=== PATIENT | male | born 1970 | race Two or more races ===

== ENCOUNTER 2024-12-07 17:56 | Inpatient (IN) | payer OTHER ==
[~2024-12-07] VITALS: Ht 175.3 cm; Wt 83.5 kg
[2024-12-07 18:37] LABS: BASOPHILS # (AUTO) 0.1 X10'3 (0-0.2); BASOPHILS % (AUTO) 0.7 % (0-1); EOSINOPHILS # (AUTO) 0.1 X10'3 (0-0.9); HEMATOCRIT 40.6 % (42.0-52.0); HEMOGLOBIN 13.3 g/dl (14.0-17.9); LYMPHOCYTES # (AUTO) 0.9 X10'3 (1.1-4.8); LYMPHOCYTES % (AUTO) 8.6 % (21-51); MEAN CORPUSCULAR HEMOGLOBIN 25.6 PG (27.0-31.0); MEAN CORPUSCULAR HGB CONC 32.8 g/dL (33.0-36.5); MEAN PLATELET VOLUME 9.6 FL (7.4-10.4); MONOCYTES # (AUTO) 0.9 X10'3 (0-0.9); MONOCYTES % (AUTO) 8.4 % (2-12); NEUTROPHILS # (AUTO) 8.9 X10'3 (1.8-7.7); NEUTROPHILS % (AUTO) 81.3 % (42-75); PLATELET COUNT 349 X10'3 (140-440); RED CELL DISTRIBUTION WIDTH 25.2 % (11.5-14.5); WHITE BLOOD COUNT 10.9 X10'3 (4.5-11.0)
[2024-12-07 19:05] LABS: PLATELET ESTIMATE NORMAL
[2024-12-07 19:06] LABS: ALANINE AMINOTRANSFERASE 48 U/L (12-78); ALBUMIN/GLOBULIN RATIO 0.6 (1.1-1.5); ALKALINE PHOSPHATASE 129 IU/L (46-116); ANION GAP 9 (8-16); ANISOCYTOSIS 2+; ASPARTATE AMINO TRANSFERASE 22 U/L (10-37); BILIRUBIN,TOTAL 0.3 MG/DL (0.1-1.0); BLOOD UREA NITROGEN 7 MG/DL (7-18); BUN/CREATININE RATIO 8.5 (10.0-20.0); CALCIUM 9.2 MG/DL (8.5-10.1); CHLORIDE 104 MMOL/L (99-107); CREATININE 0.82 MG/DL (0.60-1.10); ELLIPTOCYTES 2+; GLUCOSE 127 MG/DL (70-104); LIPASE 27 U/L (16-77); MICROCYTOSIS 1+; POIKILOCYTOSIS 2+; POTASSIUM 3.3 MMOL/L (3.5-5.1); SODIUM 140 MMOL/L (135-145); TOTAL PROTEIN 8.3 G/DL (6.4-8.2); eCRCL 104 ML/MIN; eGFR > 90 ML/MIN
[2024-12-07] MEDS ORDERED: iohexol 300mg/ml 100ml inj. ONE (19:44)
[2024-12-07 20:35] LABS: BILIRUBIN,URINE NEGATIVE (Neg); CLARITY,URINE CLEAR (Clear); COLOR,URINE YELLOW (Yellow); GLUCOSE, URINE NEGATIVE (Neg); KETONES,URINE NEGATIVE (Neg); LEUKOCYTE ESTERASE ,URINE NEGATIVE (Neg); NITRITES, URINE NEGATIVE (Neg); OCCULT BLOOD,URINE NEGATIVE (Neg); PH,URINE 5.5 (4.8-8.0); PROTEIN,URINE NEGATIVE (Neg); UROBILINOGEN,URINE 0.2 E.U/dL (0.2-1.0)
[2024-12-07 21:02] LABS: UA COLLECTION TYPE NON-SPECIFIED
[2024-12-07 21:13] LABS: APTT 27 SECONDS (22-32); PROTHROMBIN TIME 10.9 SECONDS (9.0-12.0)
[2024-12-07] MEDS: piperacillin/tazo 4.5gm/100ml 100 ML IV ONE (21:21)
[2024-12-07] MEDS: normal saline 1000ml 1,000 ML IV SCH (21:25)
[2024-12-07] MEDS: morphine 2 MG/ML inj. syringe IV ONE (21:25)
[2024-12-07] MEDS ORDERED: LOSA25TA41 PO (22:42)
[2024-12-07] MEDS ORDERED: ATOR-2 PO (22:42)
[2024-12-07] MEDS ORDERED: ASPI-1265 PO (22:42)
[2024-12-07] MEDS ORDERED: CARV3.1244 PO (22:42)
[2024-12-08] MEDS: morphine 4 MG/ML inj SYRINge IV ONE ×2 (02:32→05:31)
[2024-12-08] MEDS: piperacillin/tazo 3.375gm/50ml 50 ML IV SCH (07:59)
[2024-12-08] MEDS: HYDROmorphone inj. 0.5 MG/0.5 ML DISP.SYRIN IV PRN (08:47)
[2024-12-08] MEDS ORDERED: bisacodyl 10mg suppository rectal RC PRN (13:30)
[2024-12-08] MEDS ORDERED: magnesium hydroxide 30ml (MOM) UD suspension PO PRN (13:30)
[2024-12-08] MEDS ORDERED: acetaminophen 325mg tablet PO PRN (13:30)
[2024-12-08] MEDS ORDERED: ondansetron 4mg rapidly disintigrating tab PO PRN (13:30)
[2024-12-08] MEDS ORDERED: morphine 2 MG/ML inj. syringe IV PRN ×2 (13:30)
[2024-12-08] MEDS ORDERED: mag hydrox/Alum hydrox/simeth 30ml oral suspension PO PRN (13:30)
[2024-12-08] MEDS ORDERED: diphenhydrAMINE 50 mg/ml inj IV PRN (13:30)
[2024-12-08] MEDS ORDERED: diphenhydrAMINE 25mg capsule PO PRN (13:30)
[2024-12-08] MEDS ORDERED: acetaminophen 650mg rectal suppository RC PRN (13:30)
[2024-12-08] MEDS ORDERED: ondansetron/PF 4mg/2ml inj IV PRN (13:30)
[2024-12-08 14:30] LABS: BILIRUBIN,URINE NEGATIVE (Neg); CLARITY,URINE CLEAR (Clear); COLOR,URINE YELLOW (Yellow); GLUCOSE, URINE NEGATIVE (Neg); KETONES,URINE NEGATIVE (Neg); LEUKOCYTE ESTERASE ,URINE NEGATIVE (Neg); NITRITES, URINE NEGATIVE (Neg); OCCULT BLOOD,URINE NEGATIVE (Neg); PH,URINE 6.5 (4.8-8.0); PROTEIN,URINE NEGATIVE (Neg); UROBILINOGEN,URINE 0.2 E.U/dL (0.2-1.0)
[2024-12-08 14:37] LABS: APTT 27 SECONDS (22-32); INR 1.1 INR; PROTHROMBIN TIME 11.4 SECONDS (9.0-12.0)
[2024-12-08 14:39] LABS: UA COLLECTION TYPE NON-SPECIFIED
[2024-12-08] MEDS ORDERED: magnesium sulf-water 4G/100mL 100 ML IV PRN (14:40)
[2024-12-08] MEDS ORDERED: magnesium sulf-water 2g/50mL 50 ML IV PRN (14:40)
[2024-12-08] MEDS ORDERED: potassium Cl 20 mEq SR tablet PO PRN (14:40)
[2024-12-08] MEDS ORDERED: magnesium Cl slow-release 64mg tablet PO PRN (14:40)
[2024-12-08] MEDS ORDERED: potassium Cl 40MEQ/1/2NS 520ml 520 ML IV PRN (14:40)
[2024-12-08 14:51] LABS: MAGNESIUM 1.8 MG/DL (1.5-2.4); PHOSPHORUS 3.1 MG/DL (2.3-4.5)
[2024-12-08 15:07] LABS: HEMOGLOBIN A1C 5.7 % (4.5-6.2)
[2024-12-08] MEDS: potassium Cl 20 mEq SR tablet PO PRN (15:24)
[2024-12-08] MEDS: normal saline 1000ml 1,000 ML IV SCH (15:26)
[2024-12-08] MEDS: HYDROcodone/acetaminophen 10/325mg tab PO PRN (15:33)
[2024-12-08 16:00] VITALS: RESP 16
[2024-12-08] MEDS: piperacillin/tazo 4.5gm/100ml 100 ML IV SCH (16:33)
[2024-12-08 18:00] VITALS: BP 135/78; PULSE 81; RESP 16; TEMP 98.8; O2SAT 95
[2024-12-08] MEDS: docusate sod 100mg capsule PO SCH (19:48)
[2024-12-08] MEDS: heparin, porcine 5000 units/ml vial SQ SCH (19:50)
[2024-12-08] MEDS: K and/or MAG REPLACEMENT MC SCH (19:55)
[2024-12-08 20:00] VITALS: RESP 18; O2SAT 96
[2024-12-08 22:00] VITALS: BP 133/83; PULSE 77; RESP 20; TEMP 98.2; O2SAT 98
[2024-12-09 06:11] LABS: BASOPHILS % (AUTO) 0.6 % (0-1); EOSINOPHILS # (AUTO) 0.1 X10'3 (0-0.9); EOSINOPHILS % (AUTO) 1.8 % (0-6); HEMATOCRIT 36.6 % (42.0-52.0); HEMOGLOBIN 11.9 g/dl (14.0-17.9); LYMPHOCYTES % (AUTO) 16.7 % (21-51); MEAN CORPUSCULAR HEMOGLOBIN 25.2 PG (27.0-31.0); MEAN CORPUSCULAR HGB CONC 32.6 g/dL (33.0-36.5); MEAN CORPUSCULAR VOLUME 77.4 FL (78-98); MEAN PLATELET VOLUME 9.3 FL (7.4-10.4); MONOCYTES # (AUTO) 0.6 X10'3 (0-0.9); MONOCYTES % (AUTO) 9.3 % (2-12); NEUTROPHILS # (AUTO) 4.3 X10'3 (1.8-7.7); NEUTROPHILS % (AUTO) 71.6 % (42-75); PLATELET COUNT 275 X10'3 (140-440); RED BLOOD COUNT 4.72 X10'6 (4.70-6.10); RED CELL DISTRIBUTION WIDTH 24.3 % (11.5-14.5); WHITE BLOOD COUNT 6.1 X10'3 (4.5-11.0)
[2024-12-09 06:29] LABS: ALANINE AMINOTRANSFERASE 27 U/L (12-78); ALBUMIN 2.3 G/DL (3.4-5.0); ALBUMIN/GLOBULIN RATIO 0.5 (1.1-1.5); ALKALINE PHOSPHATASE 100 IU/L (46-116); ANION GAP 8 (8-16); ASPARTATE AMINO TRANSFERASE 19 U/L (10-37); BILIRUBIN,TOTAL 0.5 MG/DL (0.1-1.0); BLOOD UREA NITROGEN 3 MG/DL (7-18); BUN/CREATININE RATIO 3.8 (10.0-20.0); CALCIUM 8.2 MG/DL (8.5-10.1); CHLORIDE 102 MMOL/L (99-107); CHOL/HDL RATIO 3.9 (0.00-4.99); CHOLESTEROL 149 MG/DL (0-200); GLUCOSE 96 MG/DL (70-104); HDL CHOLESTEROL 38 MG/DL (35-60); MAGNESIUM 1.6 MG/DL (1.5-2.4); POTASSIUM 3.2 MMOL/L (3.5-5.1); SODIUM 136 MMOL/L (135-145); TOTAL CARBON DIOXIDE 25.7 MMOL/L (24-32); TOTAL PROTEIN 7.1 G/DL (6.4-8.2); TRIGLYCERIDES 341 MG/DL (20-135); eCRCL 107 ML/MIN; eGFR > 90 ML/MIN
[2024-12-09 06:37] VITALS: BP 150/93; PULSE 79; RESP 18; TEMP 97.7; O2SAT 98
[2024-12-09 07:10] LABS: LDL CHOLESTEROL 86 MG/DL (50-100)
[2024-12-09 07:51] LABS: ANISOCYTOSIS 3+; PLATELET ESTIMATE NORMAL
[2024-12-09 07:52] LABS: ELLIPTOCYTES 1+; MICROCYTOSIS 1+; POIKILOCYTOSIS 1+
[2024-12-09 08:00] VITALS: RESP 16
[2024-12-09] MEDS: pantoprazole 40mg Tablet.DR PO SCH (09:20)
[2024-12-09 10:00] VITALS: BP 135/88; PULSE 72; RESP 20; TEMP 97.7; O2SAT 93
[2024-12-09 19:00] VITALS: BP 141/86; PULSE 77; RESP 20; TEMP 97.8; O2SAT 97
[2024-12-09] MEDS: carVEDilol 3.125mg tablet PO SCH (21:21)
[2024-12-09 22:00] VITALS: BP 130/84; PULSE 80; RESP 18; TEMP 97.1; O2SAT 96
[2024-12-10 05:59] LABS: BASOPHILS % (AUTO) 0.5 % (0-1); EOSINOPHILS # (AUTO) 0.2 X10'3 (0-0.9); EOSINOPHILS % (AUTO) 2.9 % (0-6); HEMATOCRIT 36.4 % (42.0-52.0); HEMOGLOBIN 11.8 g/dl (14.0-17.9); LYMPHOCYTES # (AUTO) 1.2 X10'3 (1.1-4.8); LYMPHOCYTES % (AUTO) 22.3 % (21-51); MEAN CORPUSCULAR HEMOGLOBIN 25.2 PG (27.0-31.0); MEAN CORPUSCULAR HGB CONC 32.4 g/dL (33.0-36.5); MEAN CORPUSCULAR VOLUME 77.6 FL (78-98); MEAN PLATELET VOLUME 9.3 FL (7.4-10.4); MONOCYTES # (AUTO) 0.6 X10'3 (0-0.9); MONOCYTES % (AUTO) 10.6 % (2-12); NEUTROPHILS # (AUTO) 3.5 X10'3 (1.8-7.7); NEUTROPHILS % (AUTO) 63.7 % (42-75); PLATELET COUNT 304 X10'3 (140-440); RED BLOOD COUNT 4.69 X10'6 (4.70-6.10); RED CELL DISTRIBUTION WIDTH 24.1 % (11.5-14.5); WHITE BLOOD COUNT 5.5 X10'3 (4.5-11.0)
[2024-12-10 06:00] VITALS: BP 127/76; PULSE 70; RESP 16; TEMP 97.3; O2SAT 97
[2024-12-10 06:21] LABS: ALANINE AMINOTRANSFERASE 33 U/L (12-78); ALBUMIN 2.2 G/DL (3.4-5.0); ALBUMIN/GLOBULIN RATIO 0.4 (1.1-1.5); ALKALINE PHOSPHATASE 99 IU/L (46-116); ANION GAP 10 (8-16); ASPARTATE AMINO TRANSFERASE 28 U/L (10-37); BILIRUBIN,TOTAL 0.3 MG/DL (0.1-1.0); BLOOD UREA NITROGEN 3 MG/DL (7-18); BUN/CREATININE RATIO 4.6 (10.0-20.0); CALCIUM 8.6 MG/DL (8.5-10.1); CHLORIDE 105 MMOL/L (99-107); CREATININE 0.65 MG/DL (0.60-1.10); GLUCOSE 112 MG/DL (70-104); MAGNESIUM 2.3 MG/DL (1.5-2.4); POTASSIUM 3.6 MMOL/L (3.5-5.1); SODIUM 138 MMOL/L (135-145); TOTAL CARBON DIOXIDE 23.1 MMOL/L (24-32); TOTAL PROTEIN 7.4 G/DL (6.4-8.2); eCRCL 131 ML/MIN; eGFR > 90 ML/MIN
[2024-12-10] MEDS: atorvastatin 20mg tablet PO SCH (08:42)
[2024-12-10] MEDS: losartan 25mg tablet PO SCH (08:42)
[2024-12-10] MEDS: aspirin 81mg tab.chew PO SCH (08:42)
[2024-12-10 09:06] VITALS: RESP 16
[2024-12-10 10:00] VITALS: BP 125/82; PULSE 74; RESP 20; TEMP 97.9; O2SAT 94
[2024-12-10 18:00] VITALS: BP 129/82; PULSE 68; RESP 15; TEMP 97.7; O2SAT 98
[2024-12-10 20:05] VITALS: RESP 16; O2SAT 98
[2024-12-10] MEDS ORDERED: atorvastatin 20mg tablet PO SCH (21:25)
[2024-12-10 22:00] VITALS: BP 141/94; PULSE 74; RESP 19; TEMP 98; O2SAT 94
[2024-12-11 05:25] LABS: BASOPHILS % (AUTO) 0.8 % (0-1); EOSINOPHILS # (AUTO) 0.2 X10'3 (0-0.9); EOSINOPHILS % (AUTO) 3.4 % (0-6); HEMATOCRIT 37.2 % (42.0-52.0); LYMPHOCYTES # (AUTO) 1.4 X10'3 (1.1-4.8); LYMPHOCYTES % (AUTO) 23.9 % (21-51); MEAN CORPUSCULAR HEMOGLOBIN 25.2 PG (27.0-31.0); MEAN CORPUSCULAR HGB CONC 32.3 g/dL (33.0-36.5); MEAN PLATELET VOLUME 9.6 FL (7.4-10.4); MONOCYTES # (AUTO) 0.4 X10'3 (0-0.9); MONOCYTES % (AUTO) 7.8 % (2-12); NEUTROPHILS # (AUTO) 3.7 X10'3 (1.8-7.7); NEUTROPHILS % (AUTO) 64.1 % (42-75); PLATELET COUNT 376 X10'3 (140-440); RED BLOOD COUNT 4.77 X10'6 (4.70-6.10); RED CELL DISTRIBUTION WIDTH 24.8 % (11.5-14.5); WHITE BLOOD COUNT 5.7 X10'3 (4.5-11.0)
[2024-12-11 05:44] LABS: ALANINE AMINOTRANSFERASE 38 U/L (12-78); ALBUMIN 2.4 G/DL (3.4-5.0); ALBUMIN/GLOBULIN RATIO 0.5 (1.1-1.5); ALKALINE PHOSPHATASE 92 IU/L (46-116); ANION GAP 11 (8-16); ASPARTATE AMINO TRANSFERASE 25 U/L (10-37); BILIRUBIN,TOTAL 0.3 MG/DL (0.1-1.0); BLOOD UREA NITROGEN 7 MG/DL (7-18); BUN/CREATININE RATIO 9.7 (10.0-20.0); CALCIUM 8.9 MG/DL (8.5-10.1); CHLORIDE 107 MMOL/L (99-107); CREATININE 0.72 MG/DL (0.60-1.10); GLUCOSE 111 MG/DL (70-104); MAGNESIUM 2.1 MG/DL (1.5-2.4); POTASSIUM 3.8 MMOL/L (3.5-5.1); SODIUM 142 MMOL/L (135-145); TOTAL CARBON DIOXIDE 23.9 MMOL/L (24-32); TOTAL PROTEIN 7.7 G/DL (6.4-8.2); eCRCL 119 ML/MIN; eGFR > 90 ML/MIN
[2024-12-11 06:45] VITALS: BP 150/96; PULSE 66; RESP 18; TEMP 98.6; O2SAT 99
[2024-12-11 07:45] VITALS: RESP 18; O2SAT 99
[2024-12-11] MEDS: atorvastatin 20mg tablet PO SCH (07:46)
[2024-12-11 10:00] VITALS: BP 148/87; PULSE 72; RESP 17; TEMP 98; O2SAT 96
[2024-12-11 18:00] VITALS: BP 136/83; PULSE 69; RESP 16; TEMP 97.1; O2SAT 96
[2024-12-11] MEDS ORDERED: atorvastatin 20mg tablet PO SCH (21:00)
[2024-12-11] MEDS: acetaminophen 325mg tablet PO PRN (21:51)
[2024-12-11 22:00] VITALS: BP 152/82; PULSE 63; RESP 16; TEMP 98.1; O2SAT 99
[2024-12-12 05:38] LABS: BASOPHILS % (AUTO) 0.6 % (0-1); EOSINOPHILS # (AUTO) 0.2 X10'3 (0-0.9); EOSINOPHILS % (AUTO) 3.5 % (0-6); HEMATOCRIT 37.9 % (42.0-52.0); HEMOGLOBIN 12.5 g/dl (14.0-17.9); LYMPHOCYTES # (AUTO) 1.6 X10'3 (1.1-4.8); LYMPHOCYTES % (AUTO) 29.1 % (21-51); MEAN CORPUSCULAR HEMOGLOBIN 25.3 PG (27.0-31.0); MEAN CORPUSCULAR HGB CONC 32.8 g/dL (33.0-36.5); MEAN PLATELET VOLUME 9.6 FL (7.4-10.4); MONOCYTES # (AUTO) 0.4 X10'3 (0-0.9); NEUTROPHILS # (AUTO) 3.3 X10'3 (1.8-7.7); NEUTROPHILS % (AUTO) 59.8 % (42-75); PLATELET COUNT 401 X10'3 (140-440); RED BLOOD COUNT 4.92 X10'6 (4.70-6.10); RED CELL DISTRIBUTION WIDTH 24.4 % (11.5-14.5); WHITE BLOOD COUNT 5.6 X10'3 (4.5-11.0)
[2024-12-12 05:56] LABS: ALANINE AMINOTRANSFERASE 49 U/L (12-78); ALBUMIN 2.6 G/DL (3.4-5.0); ALBUMIN/GLOBULIN RATIO 0.5 (1.1-1.5); ALKALINE PHOSPHATASE 90 IU/L (46-116); ANION GAP 9 (8-16); ASPARTATE AMINO TRANSFERASE 31 U/L (10-37); BILIRUBIN,TOTAL 0.2 MG/DL (0.1-1.0); BLOOD UREA NITROGEN 6 MG/DL (7-18); BUN/CREATININE RATIO 8.7 (10.0-20.0); CALCIUM 9.2 MG/DL (8.5-10.1); CHLORIDE 107 MMOL/L (99-107); CREATININE 0.69 MG/DL (0.60-1.10); GLUCOSE 105 MG/DL (70-104); POTASSIUM 3.5 MMOL/L (3.5-5.1); SODIUM 142 MMOL/L (135-145); TOTAL PROTEIN 7.4 G/DL (6.4-8.2); eCRCL 124 ML/MIN; eGFR > 90 ML/MIN
[2024-12-12 06:00] VITALS: BP 148/90; PULSE 52; RESP 14; TEMP 96.8; O2SAT 98
[2024-12-12 11:00] VITALS: BP 122/72; PULSE 65; RESP 15; TEMP 97.5; O2SAT 96
[2024-12-12 18:30] VITALS: BP 138/84; PULSE 70; RESP 15; TEMP 98.7; O2SAT 93
[2024-12-12 19:00] VITALS: RESP 15; O2SAT 93
[2024-12-12 22:00] VITALS: BP 146/82; PULSE 64; RESP 18; TEMP 97.9; O2SAT 97
[2024-12-13 05:26] LABS: BASOPHILS # (AUTO) 0.1 X10'3 (0-0.2); BASOPHILS % (AUTO) 0.6 % (0-1); EOSINOPHILS # (AUTO) 0.2 X10'3 (0-0.9); EOSINOPHILS % (AUTO) 2.8 % (0-6); HEMATOCRIT 37.3 % (42.0-52.0); HEMOGLOBIN 12.3 g/dl (14.0-17.9); LYMPHOCYTES # (AUTO) 1.9 X10'3 (1.1-4.8); LYMPHOCYTES % (AUTO) 23.9 % (21-51); MEAN CORPUSCULAR HEMOGLOBIN 25.6 PG (27.0-31.0); MEAN CORPUSCULAR VOLUME 77.5 FL (78-98); MEAN PLATELET VOLUME 9.4 FL (7.4-10.4); MONOCYTES # (AUTO) 0.5 X10'3 (0-0.9); MONOCYTES % (AUTO) 6.3 % (2-12); NEUTROPHILS # (AUTO) 5.4 X10'3 (1.8-7.7); NEUTROPHILS % (AUTO) 66.4 % (42-75); PLATELET COUNT 426 X10'3 (140-440); RED BLOOD COUNT 4.81 X10'6 (4.70-6.10); RED CELL DISTRIBUTION WIDTH 24.6 % (11.5-14.5); WHITE BLOOD COUNT 8.1 X10'3 (4.5-11.0)
[2024-12-13 05:58] LABS: ALANINE AMINOTRANSFERASE 67 U/L (12-78); ALBUMIN 2.8 G/DL (3.4-5.0); ALBUMIN/GLOBULIN RATIO 0.5 (1.1-1.5); ALKALINE PHOSPHATASE 90 IU/L (46-116); ANION GAP 10 (8-16); ASPARTATE AMINO TRANSFERASE 47 U/L (10-37); BILIRUBIN,TOTAL 0.2 MG/DL (0.1-1.0); BLOOD UREA NITROGEN 7 MG/DL (7-18); BUN/CREATININE RATIO 7.8 (10.0-20.0); CALCIUM 8.9 MG/DL (8.5-10.1); CHLORIDE 105 MMOL/L (99-107); GLUCOSE 101 MG/DL (70-104); POTASSIUM 3.4 MMOL/L (3.5-5.1); SODIUM 138 MMOL/L (135-145); TOTAL CARBON DIOXIDE 23.2 MMOL/L (24-32); TOTAL PROTEIN 7.9 G/DL (6.4-8.2); eCRCL 95 ML/MIN; eGFR 88 ML/MIN
[2024-12-13 06:00] VITALS: BP 140/85; PULSE 60; RESP 20; TEMP 97.9; O2SAT 97
[2024-12-13 10:00] VITALS: BP 147/87; PULSE 67; RESP 16; TEMP 98; O2SAT 97
[2024-12-13] MEDS ORDERED: iohexol 300mg/ml 100ml inj. ONE (14:40)
[2024-12-13 18:00] VITALS: BP 135/78; PULSE 61; RESP 17; TEMP 98.2; O2SAT 98
[2024-12-13 19:00] VITALS: RESP 17; O2SAT 98
[2024-12-13] MEDS ORDERED: magnesium sulf-water 4G/100mL 100 ML IV PRN (19:40)
[2024-12-13] MEDS ORDERED: magnesium sulf-water 2g/50mL 50 ML IV PRN (19:40)
[2024-12-13] MEDS ORDERED: potassium Cl 20 mEq SR tablet PO PRN (19:40)
[2024-12-13] MEDS ORDERED: potassium Cl 40MEQ/1/2NS 520ml 520 ML IV PRN (19:40)
[2024-12-13] MEDS ORDERED: magnesium Cl slow-release 64mg tablet PO PRN (19:40)
[2024-12-13] MEDS: K and/or MAG REPLACEMENT MC SCH (19:56)
[2024-12-13] MEDS: potassium Cl 20 mEq SR tablet PO PRN (20:04)
[2024-12-13 22:00] VITALS: BP 145/81; PULSE 62; RESP 16; TEMP 98.2; O2SAT 94
[2024-12-13] MEDS: Melatonin 3mg tablet PO ONE (22:21)
[2024-12-14 04:46] LABS: BASOPHILS % (AUTO) 0.6 % (0-1); EOSINOPHILS # (AUTO) 0.2 X10'3 (0-0.9); EOSINOPHILS % (AUTO) 2.7 % (0-6); HEMOGLOBIN 12.6 g/dl (14.0-17.9); LYMPHOCYTES # (AUTO) 1.8 X10'3 (1.1-4.8); LYMPHOCYTES % (AUTO) 24.2 % (21-51); MEAN CORPUSCULAR HEMOGLOBIN 25.7 PG (27.0-31.0); MEAN CORPUSCULAR HGB CONC 33.3 g/dL (33.0-36.5); MEAN CORPUSCULAR VOLUME 77.1 FL (78-98); MEAN PLATELET VOLUME 9.4 FL (7.4-10.4); MONOCYTES # (AUTO) 0.4 X10'3 (0-0.9); NEUTROPHILS # (AUTO) 5.2 X10'3 (1.8-7.7); NEUTROPHILS % (AUTO) 67.5 % (42-75); PLATELET COUNT 440 X10'3 (140-440); RED BLOOD COUNT 4.93 X10'6 (4.70-6.10); RED CELL DISTRIBUTION WIDTH 24.9 % (11.5-14.5); WHITE BLOOD COUNT 7.6 X10'3 (4.5-11.0)
[2024-12-14 05:03] LABS: ALANINE AMINOTRANSFERASE 72 U/L (12-78); ALBUMIN 2.9 G/DL (3.4-5.0); ALBUMIN/GLOBULIN RATIO 0.6 (1.1-1.5); ALKALINE PHOSPHATASE 85 IU/L (46-116); ANION GAP 10 (8-16); ASPARTATE AMINO TRANSFERASE 36 U/L (10-37); BILIRUBIN,TOTAL 0.3 MG/DL (0.1-1.0); BLOOD UREA NITROGEN 9 MG/DL (7-18); BUN/CREATININE RATIO 11.5 (10.0-20.0); CALCIUM 9.2 MG/DL (8.5-10.1); CHLORIDE 107 MMOL/L (99-107); CREATININE 0.78 MG/DL (0.60-1.10); GLUCOSE 99 MG/DL (70-104); POTASSIUM 3.8 MMOL/L (3.5-5.1); SODIUM 141 MMOL/L (135-145); TOTAL CARBON DIOXIDE 24.3 MMOL/L (24-32); TOTAL PROTEIN 7.6 G/DL (6.4-8.2); eCRCL 110 ML/MIN; eGFR > 90 ML/MIN
[2024-12-14 06:00] VITALS: BP 134/78; PULSE 60; RESP 16; TEMP 98; O2SAT 94
[2024-12-14 08:40] VITALS: BP_SYST 134; PULSE 60
[2024-12-14 08:50] VITALS: RESP 17; O2SAT 98
[2024-12-14] MEDS ORDERED: CIPR250T26 PO (11:23)
[2024-12-14] MEDS ORDERED: METR-159 PO (11:23)
[2024-12-15] MEDS ORDERED: metroNIDAZOLE 500mg tablet PO SCH (08:00)
[2024-12-15] MEDS ORDERED: ciprofloxacin 250mg tablet PO SCH (08:00)
== END 2024-12-14 13:20 | disposition home or self-care (01) | DRG 392 ==
LOC: ER 17:57 → ED HOLD 12-08 13:36 → SUR 3N 12-08 15:54
PROVIDERS: ADMIT Family Medicine; ATTEND Family Medicine
PROC: BW211ZZ Computerized Tomography (CT Scan) of Abdomen and Pelvis using Low Osmolar Contrast (ICD-10-PCS; principal; 2024-12-13)
DX: K57.20 Diverticulitis of large intestine with perforation and abscess without bleeding (principal); E88.09 Other disorders of plasma-protein metabolism, not elsewhere classified; E78.5 Hyperlipidemia, unspecified; E87.6 Hypokalemia; I11.0 Hypertensive heart disease with heart failure; I50.9 Heart failure, unspecified; K52.9 Noninfective gastroenteritis and colitis, unspecified; K76.0 Fatty (change of) liver, not elsewhere classified; Z87.11 Personal history of peptic ulcer disease; Z87.442 Personal history of urinary calculi
CPT/HCPCS: 36415; 74177; 80053; 80061; 81003; 83036; 83605; 83690; 83735; 83880; 84100; 84145; 85008; 85025; 85610; 85730; 87040; 87081; 96365; 96375; 99285; G0378; J1171; J1644; J2270; J2543; J7030; Q9967